=== PATIENT | male | born 2000 | race Caucasian/White ===

== ENCOUNTER → 2019-08-08 12:44 | Outpatient (BNVA) | payer OTHER, SELFPAY | PROVIDERS: Visit Provider Family Medicine | DX: J06.9 Acute upper respiratory infection, unspecified (principal); B97.89 Other viral agents as the cause of diseases classified elsewhere; R52 Pain, unspecified; R05 Cough | CPT/HCPCS: 87804 ==

== ENCOUNTER → 2020-11-15 09:33 | Outpatient (BNVA) | payer OTHER, SELFPAY | PROVIDERS: Visit Provider Psychiatry & Neurology Psychiatry | DX: F90.2 Attention-deficit hyperactivity disorder, combined type (principal); F41.9 Anxiety disorder, unspecified | CPT/HCPCS: 90792 ==

== ENCOUNTER → 2021-08-22 11:15 | Outpatient (BNVA) | payer OTHER, SELFPAY | PROVIDERS: Visit Provider Nurse Practitioner Family | DX: N30.90 Cystitis, unspecified without hematuria (principal) | CPT/HCPCS: 81003; 87086 ==

== ENCOUNTER → 2022-12-13 12:25 | Outpatient (BNVA) | payer OTHER, SELFPAY | PROVIDERS: Visit Provider Nurse Practitioner Family | DX: R39.9 Unspecified symptoms and signs involving the genitourinary system (principal); R39.11 Hesitancy of micturition | CPT/HCPCS: 81000; 87086 ==

== ENCOUNTER 2023-07-03 14:13 | Outpatient (CLI) | payer OTHER, SELFPAY ==
--- NOTE | 2023-07-03 | US_ITS ---
WS: [id number] ULTRASOUND SOFT TISSUE NECK INDICATION: Lump LEFT neck TECHNIQUE: Ultrasound LEFT neck FINDINGS: Ultrasound performed in the area of interest LEFT neck. A few slightly prominent but normal appearing lymph nodes in the area of concern. Largest lymph node measures 8.6 x 5.7 x 4.4 mm. No arielle dence of neck mass or fluid collection. No other suspicious findings. IMPRESSION: A few slightly prominent but normal-appearing lymph nodes in the LEFT neck. If persistent concern, contrast-enhanced CT neck can be performed for better anatomic detail.
== END 2023-07-03 14:14 | disposition home or self-care (01) ==
LOC: RAD 14:13
PROVIDERS: Visit Provider Nurse Practitioner Family
DX: R59.9 Enlarged lymph nodes, unspecified (principal)
CPT/HCPCS: 76882